=== PATIENT | female | born 1935 | race Caucasian/White ===

== ENCOUNTER → 2016-11-05 | Outpatient (CLI) | payer MEDICARE, OTHER | END | disposition home or self-care (01) | LOC: GMAL 10:44 | PROVIDERS: ATTEND Family Medicine | DX: E53.8 Deficiency of other specified B group vitamins (principal); E03.9 Hypothyroidism, unspecified ==

== ENCOUNTER → 2016-11-27 | Outpatient (CLI) | payer MEDICARE | END | disposition home or self-care (01) | LOC: GMAL 10:41 | PROVIDERS: ATTEND Family Medicine | DX: R06.02 Shortness of breath (principal) ==

== ENCOUNTER → 2016-12-11 | Outpatient (CLI) | payer MEDICARE | LOC: SL 21:30 | PROVIDERS: ATTEND Family Medicine | DX: G47.33 Obstructive sleep apnea (adult) (pediatric) (principal) ==

== ENCOUNTER → 2016-12-30 | Outpatient (CLI) | payer MEDICARE | LOC: BFHH 13:17 | PROVIDERS: ATTEND Family Medicine | DX: N39.0 Urinary tract infection, site not specified (principal); R73.9 Hyperglycemia, unspecified; R11.12 Projectile vomiting ==

== ENCOUNTER → 2017-03-03 | Outpatient (CLI) | payer MEDICARE | END | disposition home or self-care (01) | LOC: BFHH 12:03 | PROVIDERS: ATTEND Family Medicine | DX: I13.0 Hypertensive heart and chronic kidney disease with heart failure and stage 1 through stage 4 chronic kidney disease, or unspecified chronic kidney disease (principal); I50.9 Heart failure, unspecified; N18.2 Chronic kidney disease, stage 2 (mild); E11.42 Type 2 diabetes mellitus with diabetic polyneuropathy; J44.9 Chronic obstructive pulmonary disease, unspecified ==

== ENCOUNTER → 2017-03-13 | Outpatient (CLI) | payer MEDICARE | LOC: RESP 11:18 | PROVIDERS: ATTEND Family Medicine | DX: J44.9 Chronic obstructive pulmonary disease, unspecified (principal) ==

== ENCOUNTER → 2017-06-09 | Outpatient (CLI) | payer MEDICARE ==
--- NOTE | 2017-06-09 12:57 | RAD ---
4V right shoulder. Indication: RIGHT PAIN Comparison: February 16, 2014. Impression: A.C. and glenohumeral joint alignment normal without acute fracture or dislocation. Mild AC joint osteoarthritis. Mild glenohumeral joint osteoarthritis. Mild lateral downsloping acromion. Osteopenia. If this is a new finding, DEXA scan recommended as well as evaluation for possible osteoporosis treatment. Electronically signed by: Feroz Pedersen MD 06/09/2017 12:56 PM [facility]
== END | disposition home or self-care (01) ==
LOC: RAD 09:18
PROVIDERS: ATTEND Orthopaedic Surgery
DX: M25.511 Pain in right shoulder (principal)

== ENCOUNTER → 2017-06-24 | Outpatient (CLI) | payer MEDICARE | LOC: GMAL 10:47 | PROVIDERS: ATTEND Family Medicine | DX: D53.9 Nutritional anemia, unspecified (principal) ==

== ENCOUNTER 2017-11-11 18:46 | Observation (INO) | payer MEDICARE ==
[2017-11-11] MEDS ORDERED: SODIUM CHLORIDE 0.9% (FLUSH) 10 ML SYG IV PRN (18:51)
[2017-11-11] MEDS ORDERED: ASPIRIN (CHEWABLE) 81 MG TAB PO ONE (19:11)
--- NOTE | 2017-11-11 19:24 | RAD ---
EXAM DESCRIPTION: Chest,1 View CLINICAL HISTORY: CHEST PAIN COMPARISON: 04/11/2015 FINDINGS: Cardiac silhouette is within normal limits. There is no focal parenchymal or pleural disease. Visualized osseous structures are within normal limits. IMPRESSION: No evidence of acute cardiopulmonary disease. Electronically signed by: Angel Mcfarland 11/11/2017 7:23 PM CDT
--- NOTE | 2017-11-11 22:59 | ED.PDOC ---
History of Present Illness - General Chief Complaint: Chest Pain/GA Stated Complaint: chest pain, substernal Time Seen by Provider: 11/11/17 18:49 Source: patient Exam Limitations: no limitations - History of Present Illness Timing/Duration: gone now Severity/Quality: moderate, aching, pressure Location: substernal Chest Pain Radiation: no radiation Activities at Onset: none Improving Factors: nothing Worsening Factors: nothing Nitro Today/Relief: no nitro taken today Associated Symptoms: denies symptoms Allergies/Adverse Reactions: Allergies Hydrocodone [From Vicodin] Allergy (Severe, Verified 11/11/17 19:52) swelled up everywhere, "couldn't breathe" Home Medications: Ambulatory Orders Acetaminophen W/ Codeine [Tylenol W/ CODEINE #3] 1 ea PO Q6H PRN 04/09/15 Alendronate Sodium [Fosamax] 70 mg PO WKLY 04/09/15 Ascorbic Acid [Vitamin C] 500 mg PO DAILY 04/09/15 Budesonide-Formoterol Fumarate [Symbicort 160-4.5 Mcg/Act] 1 aer IN BID PRN Calcium 1,200 mg PO ACBK 04/09/15 Carbidopa/Levodopa 25/100 [Sinemet 25/100] 1 ea PO BEDTIME 04/09/15 Cyanocobalamin [Vitamin B-12] 1,000 mcg SL DAILY 04/09/15 Glucosamine Hydrochloride [Glucosamine] 1,000 mg PO DAILY 04/09/15 Levalbuterol Nebs [Xopenex NEBS] 3 ml INH PRN PRN 04/09/15 Levothyroxine Sodium [Synthroid] 88 mcg PO DAILY 04/09/15 Multiple Vitamin [Multivitamins] 1 cap PO DAILY 04/09/15 Multiple Vitamins W/ Minerals [Vitamin D3 Complete] 1 tab PO DAILY 04/09/15 Naproxen Sodium [Aleve] 440 mg PO BID 04/09/15 Oxybutynin Chloride [Ditropan] 5 mg PO BID 04/09/15 Pravastatin Sodium [Pravachol] 40 mg PO BID 04/09/15 Ranitidine HCl [Acid Flight/Transport Nurse] 75 mg PO DAILY 04/09/15 Spironolactone & Hydrochloroth [Spironolactone/Hydrochlor 25-25 mg] 1 tab PO DAILY 11/22/15 Terbinafine HCl [Lamisil] 250 mg PO DAILY 04/09/15 Vitamin E 1,000 unit PO DAILY 04/09/15 Cefdinir 300 mg PO BID #20 cap 04/11/15 Metoprolol Tartrate [Lopressor] 100 mg PO BIDFD #0 tab 04/11/15 Prednisone 10 mg PO . DIRECTED #30 se 04/11/15 Review of Systems - Review of Systems Constitutional: States: no symptoms reported EENTM: States: no symptoms reported Respiratory: States: no symptoms reported Cardiology: States: chest pain, edema. Denies: palpitations, syncope Gastrointestinal/Abdominal: States: no symptoms reported Genitourinary: States: no symptoms reported Musculoskeletal: States: no symptoms reported Skin: States: no symptoms reported Neurological: States: no symptoms reported Endocrine: States: no symptoms reported Hematologic/Lymphatic: States: no symptoms reported All other Systems: Reviewed and Negative Past Medical History (General) - Patient Medical History Hx Seizures: No Hx Stroke: Yes - 2008 Hx Dementia: No Hx Asthma: No Hx of COPD: Yes Hx Cardiac Disorders: No Hx Congestive Heart Failure: No Hx Pacemaker: No Hx Hypertension: Yes Hx Thyroid Disease: Yes Hx Diabetes: Yes Hx Gastroesophageal Reflux: Yes Hx Renal Disease: No Hx Cancer: No Hx of HIV: No Hx MRSA: No Surgical History: appendectomy, tonsillectomy, other - Vaccination History Hx Tetanus, Diphtheria Vaccination: No Hx Influenza Vaccination: Yes Hx Pneumococcal Vaccination: Yes - Social History Hx Tobacco Use: No Hx Alcohol Use: No Hx Depression: No Family Medical History - Family History Mother Family History: No Known Living Status: Hx Family Stroke: Yes Father Hx Cardiac Disease: Yes Physical Exam - Physical Exam General Appearance: Alert, Well Developed Eyes, Ears, Nose, Throat Exam: PERRL/EOMI, normal ENT inspection Neck: non-tender, full range of motion, supple, normal inspection Respiratory: chest non-tender, lungs clear, normal breath sounds, no respiratory distress Cardiovascular/Chest: normal peripheral pulses, regular rate, rhythm Peripheral Pulses: radial,right: 2+, radial,left: 2+ Gastrointestinal/Abdominal: non tender, soft Extremity: normal range of motion, normal inspection Neurologic: no motor/sensory deficits, alert Skin Exam: normal color, warm/dry Lymphatic: no adenopathy Progress - Progress Progress: 11/11/17 23:00 CHEST PAIN X 6H CLINIC OFFICE ASSISTANT. CARDIAC ENZ NEG X 2 HOWEVER NEW ONSET CP, THUS NEED TO ADMIT FOR SERIAL ENZYMES AND CP R/O. W/U NEG IN ER: COAGS, CMP, CBC, CXR, EKG, BNP UNREMARKABLE. I SPOKE WITH DIMAS FLETCHER, HOSPITALIST RESIDENTIAL ENERGY AUDITOR, WHO IS ADMITTING FOR CP R/O. THANK YOU , DIMAS AND [facility], FOR ACCEPTING FURTHER CARE. Departure - Departure Clinical Impression: Chest pain, Bilateral lower extremity edema Disposition: Admit Patient Condition: Good Diet: resume usual diet Home Medications: Ambulatory Orders Acetaminophen W/ Codeine [Tylenol W/ CODEINE #3] 1 ea PO Q6H PRN 04/09/15 Alendronate Sodium [Fosamax] 70 mg PO WKLY 04/09/15 Ascorbic Acid [Vitamin C] 500 mg PO DAILY 04/09/15 Budesonide-Formoterol Fumarate [Symbicort 160-4.5 Mcg/Act] 1 aer IN BID PRN Calcium 1,200 mg PO ACBK 04/09/15 Carbidopa/Levodopa 25/100 [Sinemet 25/100] 1 ea PO BEDTIME 04/09/15 Cyanocobalamin [Vitamin B-12] 1,000 mcg SL DAILY 04/09/15 Glucosamine Hydrochloride [Glucosamine] 1,000 mg PO DAILY 04/09/15 Levalbuterol Nebs [Xopenex NEBS] 3 ml INH PRN PRN 04/09/15 Levothyroxine Sodium [Synthroid] 88 mcg PO DAILY 04/09/15 Multiple Vitamin [Multivitamins] 1 cap PO DAILY 04/09/15 Multiple Vitamins W/ Minerals [Vitamin D3 Complete] 1 tab PO DAILY 04/09/15 Naproxen Sodium [Aleve] 440 mg PO BID 04/09/15 Oxybutynin Chloride [Ditropan] 5 mg PO BID 04/09/15 Pravastatin Sodium [Pravachol] 40 mg PO BID 04/09/15 Ranitidine HCl [Acid Flight/Transport Nurse] 75 mg PO DAILY 04/09/15 Spironolactone & Hydrochloroth [Spironolactone/Hydrochlor 25-25 mg] 1 tab PO DAILY 04/09/15 Terbinafine HCl [Lamisil] 250 mg PO DAILY 04/09/15 Vitamin E 1,000 unit PO DAILY 04/09/15 Cefdinir 300 mg PO BID #20 cap 04/11/15 Metoprolol Tartrate [Lopressor] 100 mg PO BIDFD #0 tab 04/11/15 Prednisone 10 mg PO . DIRECTED #30 se 04/11/15 Decision To Admit - Decistion To Admit Decision to Admit Reason: Admit from ER Decision to Admit Date: 11/11/17 Decision to Admit Time: 23:00
[2017-11-12] MEDS ORDERED: SODIUM CHLORIDE 0.9% (FLUSH) 10 ML SYG IV PRN (00:03)
[2017-11-12] MEDS ORDERED: MORPHINE SULFATE INJ 10 MG/ML VIAL IV PRN (00:03)
[2017-11-12] MEDS ORDERED: NITROGLYCERIN 0.4 MG 25 EA TAB SL PRN (00:03)
[2017-11-12] MEDS ORDERED: ACETAMINOPHEN 325 MG TAB PO PRN (00:03)
[2017-11-12] MEDS ORDERED: ACETAMINOPHEN W/COD #3 TAB 1 EA TAB PO PRN (00:09)
[2017-11-12] MEDS ORDERED: LEVALBUTEROL NEBS 1.25 MG/3 ML VIAL NEB PRN (00:12)
[2017-11-12] MEDS ORDERED: IV SET AND CAP CHANGE INJ INJ SCH (00:30)
[2017-11-12] MEDS ORDERED: PANTOPRAZOLE SODIUM TAB 40 MG PO SCH (06:30)
[2017-11-12] MEDS ORDERED: METOPROLOL TARTRATE 25 MG TAB PO SCH (07:30)
[2017-11-12] MEDS ORDERED: PRAVASTATIN SODIUM 20 MG TAB ONE (07:53)
[2017-11-12] MEDS ORDERED: hydroCHLOROthiazide 25 MG TAB ONE (07:53)
[2017-11-12] MEDS ORDERED: SPIRONOLACTONE 25 MG TAB ONE (07:53)
[2017-11-12] MEDS ORDERED: ENOXAPARIN SODIUM 30 MG/0.3 ML SYG SUBCU ONE (07:53)
[2017-11-12] MEDS: LEVALBUTEROL NEBS 1.25 MG/3 ML VIAL NEB SCH ×2 (08:22→13:00)
[2017-11-12] MEDS ORDERED: TERBINAFINE HCL 250 MG TAB PO SCH (09:00)
[2017-11-12] MEDS ORDERED: [UNRECOGNIZED DRUG - OTHER] PO SCH (09:00)
[2017-11-12] MEDS ORDERED: OXYBUTYNIN CL 5 MG TAB PO SCH (09:00)
[2017-11-12] MEDS ORDERED: SODIUM CHLORIDE 0.9% (FLUSH) 10 ML SYG IV SCH (09:00)
[2017-11-12] MEDS ORDERED: SPIRONOLACTONE PO SCH (09:00)
[2017-11-12] MEDS ORDERED: HYDROCHLOROTHIAZIDE PO SCH (09:00)
[2017-11-12] MEDS ORDERED: SPIRONOLACTONE 25 MG TAB PO SCH (09:00)
[2017-11-12] MEDS ORDERED: ENOXAPARIN SODIUM 40 MG/0.4 ML SYG SUBCU SCH (09:00)
[2017-11-12] MEDS ORDERED: hydroCHLOROthiazide 25 MG TAB PO SCH (09:00)
[2017-11-12] MEDS ORDERED: PRAVASTATIN SODIUM 20 MG TAB PO SCH (09:00)
[2017-11-12] MEDS ORDERED: LEVOTHYROXINE SODIUM 0.088 MG TAB PO SCH (09:00)
[2017-11-12 10:16] VITALS: BP 90/65; TEMP 96.3; O2SAT 95
[2017-11-12] MEDS ORDERED: POTASSIUM CHLORIDE 20 MEQ TAB PO ONE (11:32)
--- NOTE | 2017-11-12 13:27 | SSS ---
SUPERVISING PHYSICIAN: Irvin Ang MD DATE OF ADMISSION: 11/11/17 DATE OF DISCHARGE: 11/12/17 DISCHARGE DIAGNOSIS: 1. Chest pain, rule out myocardial infarction. 2. Shortness of breath with a significant history of chronic obstructive pulmonary disease. 3. Chronic obstructive pulmonary disease. 4. Gastroesophageal reflux disease. HISTORY OF PRESENT ILLNESS: This is an 82-year-old female patient who lives at [facility]. About 4:30 yesterday afternoon, she started having some stomach cramps. Shortly thereafter, she had some pain in her left biceps that radiated up to her left neck and jaw area. She was at rest when the pain began. Shortly thereafter, it subsided, but then again about 6 PM she had some pressure in her chest that also went up to the left neck. She also felt like she was short of breath. She does have a significant history of chronic obstructive pulmonary disease. She felt warm. There was no diaphoresis. At that point, she decided to go to the Emergency Room. Her initial lab in the Emergency Room showed a CBC that was basically within normal limits. Her electrolytes were within normal limits as well as her liver function. Slightly elevated BUN of 28. Her initial two sets of cardiac enzymes were negative. She had a slightly elevated BNP of 136. She was given an aspirin in the Emergency Room. An EKG was done. There were no changes on her EKG. Chest x-ray showed no acute cardiopulmonary processes. I was called for admission to the hospital. PAST MEDICAL HISTORY: 1. Hyperlipidemia. 2. Hypertension. 3. Chronic obstructive pulmonary disease. 4. Gastroesophageal reflux disease. 5. Osteoporosis. 6. Osteoarthritis. 7. Diabetes mellitus, type 2. 8. Cerebrovascular accident. 9. Obstructive sleep apnea. 10. Fibromyalgia. 11. Polymyalgia rheumatica. PAST SURGICAL HISTORY: 1. Appendectomy. 2. Left knee arthroscopy. 3. Cataract removal bilaterally. 4. Bilateral knee replacement. 5. Laminectomy of lumbar region. 6. Cervical surgery. 7. Bilateral rotator cuff repair. 8. Back surgery repair. OUTPATIENT MEDICATIONS: 1. Metoprolol. 2. Alendronate. 3. Pravastatin. 4. Sinemet. 5. Levothyroxine. 6. Docusate sodium. 7. Tylenol with codeine. 8. Meloxicam. 9. Magnesium oxide. 10. Oxybutynin. 11. Biotin. 12. Calcium citrate. 13. Glucosamine. 14. Multivitamin. 15. Vitamin B12. ALLERGIES: VICODIN, ELAVIL. FAMILY HISTORY: Positive for cerebrovascular accident, myocardial infarction. SOCIAL HISTORY: She is retired. She is . She has two children. She has a history of smoking for 13 years, but she quit in 1962. She denies any ETOH or illicit drug use. REVIEW OF SYSTEMS: Negative except as per history of present illness. She has had no chest pain since admission to the hospital. PHYSICAL EXAMINATION: VITAL SIGNS: Afebrile. Heart rate 63. Blood pressure has run between 90/64 and 117/69. Respiratory rate 18. O2 saturation 95% on 2 liters nasal cannula. GENERAL: This is an 82-year-old female patient sitting in her hospital bed. She is in no acute distress. HEENT: Normocephalic, atraumatic. Pupils are equal and reactive. Oropharynx is clear. NECK: Supple without mass. No discernible jugular venous distention. RESPIRATORY: Essentially clear to auscultation bilaterally. CHEST: There is equal rise and fall of the chest with inspiration and expiration. CARDIOVASCULAR: Regular rate and rhythm. GASTROINTESTINAL: Abdomen is soft, nondistended, nontender. Bowel sounds are positive. EXTREMITIES: No cyanosis, clubbing or edema. NEUROLOGIC: Awake, alert and oriented times three. Cranial nerves II-XII are grossly intact. LABORATORY: Subsequent lab shows CBC again basically within normal limits. Sodium 141, potassium slightly low at 3.5, chloride 107, carbon dioxide 27, BUN 25, creatinine 0.95, magnesium 2. Liver function tests within normal limits. Her last two sets of cardiac enzymes are within normal limits. All other labs and films have been reviewed via the EMR. DISCHARGE PLAN: The patient was placed in observation overnight. She had no chest pain after admission. She was given oral potassium supplementation this morning for her slightly low potassium. She was also given a proton pump inhibitor for ulcer prophylaxis. Her home medications are to be resumed on discharge. I have also given her an 81 mg enteric coated aspirin. She is to resume her previous diet. She is to followup with Dr. David on 11/20/17 at 2: 15. I am not sure when her most recent cardiac workup was, but if it has not been in the past year or so, she may need an additional cardiac workup. She is to return to the hospital or call Dr. David' office for any further problems or complications. Dr. Ang is the collaborating physician and available for consultation. #[id number] [facility]
[2017-11-12] MEDS ORDERED: CARBIDOPA/LEVODOPA 25/100 1 TAB PO SCH (21:00)
[2017-11-13] MEDS ORDERED: LEVOTHYROXINE SODIUM 0.088 MG TAB PO SCH (06:30)
[2017-11-13] MEDS ORDERED: ASPIRIN TABLET 325 MG TAB PO SCH (09:00)
== END 2017-11-12 12:51 ==
LOC: ER 18:46 → MS 23:15
PROVIDERS: ADMIT Nurse Practitioner Acute Care; ATTEND Nurse Practitioner Acute Care
DX: R07.89 Other chest pain (principal); R06.02 Shortness of breath; J44.9 Chronic obstructive pulmonary disease, unspecified; K21.9 Gastro-esophageal reflux disease without esophagitis; E87.6 Hypokalemia; R60.0 Localized edema; E78.5 Hyperlipidemia, unspecified; I10 Essential (primary) hypertension; E11.9 Type 2 diabetes mellitus without complications; G47.33 Obstructive sleep apnea (adult) (pediatric); M79.7 Fibromyalgia; M35.3 Polymyalgia rheumatica; M81.0 Age-related osteoporosis without current pathological fracture; M19.90 Unspecified osteoarthritis, unspecified site; Z79.1 Long term (current) use of non-steroidal anti-inflammatories (NSAID); Z79.82 Long term (current) use of aspirin; Z79.51 Long term (current) use of inhaled steroids; Z79.899 Other long term (current) drug therapy; Z88.5 Allergy status to narcotic agent; Z88.8 Allergy status to other drugs, medicaments and biological substances; Z86.73 Personal history of transient ischemic attack (TIA), and cerebral infarction without residual deficits; Z87.891 Personal history of nicotine dependence
CPT/HCPCS: J7614; 82553 ×4; 80053; 36415 ×4; 82550 ×4; 80048; 85025 ×2; 85730; 85610; 84484 ×4; 80076; 83880; 71045; 94640; 94762; 93005 ×3; G0378

== ENCOUNTER 2017-11-20 09:22 | Emergency (ER) | payer MEDICARE ==
[2017-11-20 09:39] VITALS: TEMP 98.5
[2017-11-20] MEDS ORDERED: DIPHENOXYLATE HCL/ATROPINE 2.5 MG TAB PO ONE (09:47)
[2017-11-20] MEDS ORDERED: SODIUM CHLORIDE 0.9% 1000ML 1,000 ML IVS ONE (09:47)
--- NOTE | 2017-11-20 09:59 | ED.PDOC ---
History of Present Illness - General Chief Complaint: GI Problem Time Seen by Provider: 11/20/17 09:47 Information Source: patient Exam Limitations: no limitations - History of Present Illness Initial Comments: patient comes in today with 2 day history of diarrhea. Patient states she's had more than 5 episodes of loose stools this morning and more than she can count the last couple of days. Patient did have a cleaning lady that had a similar illness about a week ago but no other sick contacts. Patient states she does feel weak and a little bit of nausea but no emesis. She's had no blood in her stools and no black or tarry stools. She denies any fever or chills. She's had no cough or cold symptoms. She denies chest pain or shortness of breath. Abdominal Pain Onset Location: generalized abdomen Pain Radiation: no radiation Quality: moderate Timing/Duration: other Improving Factors: nothing Worsening Factors: nothing Associated Symptoms: nausea/vomiting Review of Systems - Review of Systems Constitutional: States: no symptoms reported. Denies: chills, fever EENTM: States: no symptoms reported. Denies: eye pain, ear pain, nose congestion, throat pain Respiratory: States: no symptoms reported. Denies: cough, orthopnea, short of breath, wheezing Cardiology: States: no symptoms reported. Denies: chest pain, edema, palpitations Gastrointestinal/Abdominal: States: diarrhea, nausea. Denies: abdominal pain, vomiting Genitourinary: States: no symptoms reported. Denies: dysuria, frequency Musculoskeletal: States: no symptoms reported Skin: States: no symptoms reported Past Medical History (General) - Patient Medical History Hx Seizures: No Hx Stroke: No Hx Dementia: No Hx Asthma: No Hx of COPD: Yes Hx Cardiac Disorders: No Hx Congestive Heart Failure: No Hx Pacemaker: No Hx Hypertension: Yes Hx Thyroid Disease: Yes Hx Diabetes: Yes Hx Gastroesophageal Reflux: No Hx Renal Disease: No Hx Cancer: No Hx of HIV: No Hx Hepatitis C: No Hx MRSA: No - Vaccination History Hx Tetanus, Diphtheria Vaccination: No Hx Influenza Vaccination: Yes Hx Pneumococcal Vaccination: No Immunizations Up to Date: Yes - Social History Hx Tobacco Use: No Hx Chewing Tobacco Use: No Hx Alcohol Use: No Hx Substance Use: No Hx Substance Use Treatment: No Hx Depression: No Feels Threatened In Home Enviroment: No Feels Threatened In a Relationship: No Hx Physical Abuse: No Hx Emotional Abuse: No Hx Suspected Abuse: No - Activities of Daily Living Alf/Assisted Living (if applicable):: [place] - Female History Patient is a Female of Child Bearing Age (10 -59 yrs old): No Patient : No Family Medical History - Family History Mother Family History: No Known Living Status: Age at (years of age): 73 Hx Family Stroke: Yes Father Family History: Unknown Living Status: Age at (years of age): 89 Hx Cardiac Disease: Yes Physical Exam - Physical Exam General Appearance: Alert, Comfortable, No apparent distress Eyes, Ears, Nose, Throat Exam: PERRL/EOMI, normal ENT inspection, TMs normal, pharynx normal Neck: non-tender, full range of motion, supple, normal inspection Respiratory: chest non-tender, lungs clear, normal breath sounds, no respiratory distress Cardiovascular/Chest: normal peripheral pulses, regular rate, rhythm, no edema, no gallop, no JVD, no murmur Peripheral Pulses: No deficit Gastrointestinal/Abdominal: normal bowel sounds, non tender, soft, no organomegaly, no pulsatile mass Progress - Progress Progress: 11/20/17 10:55 11/20/17 10:32 BMP [BASIC METABOLIC PANEL] Stat Laboratory Results WBC 8.8 K/mm3 (4.8-10.8) 11/20/17 10:00 RBC 4.24 M/mm3 (4.20-5.40) 11/20/17 10:00 Hgb 13.6 gm/dL (12.0-16.0) 11/20/17 10:00 Hct 40.3 % (36.0-47.0) 11/20/17 10:00 MCV 95.0 fl (81.0-99.0) 11/20/17 10:00 MCH 32.2 pg (27.0-31.0) H 11/20/17 10:00 MCHC 33.9 g/dL (33.0-37.0) 11/20/17 10:00 RDW 13.7 % (11.5-14.5) 11/20/17 10:00 Plt Count 202 K/mm3 (130-400) 11/20/17 10:00 MPV 9.2 fl (7.40-10.4) 11/20/17 10:00 Absolute Neuts (auto) 6.50 K/uL (1.8-6.8) 11/20/17 10:00 Absolute Lymphs (auto) 1.40 K/uL (1.0-3.4) 11/20/17 10:00 Absolute Monos (auto) 0.80 K/uL (0.2-0.8) 11/20/17 10:00 Absolute Eos (auto) 0.10 K/uL (0.0-0.4) 11/20/17 10:00 Absolute Basos (auto) 0.00 K/uL (0.0-0.1) 11/20/17 10:00 Neutrophils % 73.2 % (42.0-78.0) 11/20/17 10:00 Lymphocytes % 16.4 % (20.0-50.0) L 11/20/17 10:00 Monocytes % 8.8 % (2.0-9.0) 11/20/17 10:00 Eosinophils % 1.1 % (1.0-5.0) 11/20/17 10:00 Basophils % 0.5 % (0.0-2.0) 11/20/17 10:00 Sodium 137 mmol/L (135-145) 11/20/17 10:00 Potassium 3.3 mmol/L (3.6-5.0) L 11/20/17 10:00 Chloride 102 mmol/L (101-111) 11/20/17 10:00 Carbon Dioxide 26 mmol/L (21-31) 11/20/17 10:00 Anion Gap 12.3 (12-18) 11/20/17 10:00 BUN 25 mg/dL (7-18) H 11/20/17 10:00 Creatinine 1.18 mg/dL (0.6-1.3) 11/20/17 10:00 BUN/Creatinine Ratio 21.2 (10-20) H 11/20/17 10:00 Random Glucose 85 mg/dL (70-105) 11/20/17 10:00 Serum Osmolality 277.5 mOsm/L (275-295) 11/20/17 10:00 Calcium 9.2 mg/dL (8.4-10.2) 11/20/17 10:00 Total Bilirubin 0.7 mg/dL (0.2-1.0) 11/20/17 10:00 AST 26 IU/L (10-42) 11/20/17 10:00 ALT 20 IU/L (10-60) 11/20/17 10:00 Alkaline Phosphatase 83 IU/L (42-121) 11/20/17 10:00 Serum Total Protein 7.3 gm/dL (6.4-8.2) 11/20/17 10:00 Albumin 3.9 g/dl (3.2-5.5) 11/20/17 10:00 Globulin 3.4 gm/dL (2.3-3.5) 11/20/17 10:00 Albumin/Globulin Ratio 1.1 (1.1-1.9) 11/20/17 10:00 discussed with patient most likely of viral gastroenteritis. Since arrival she has not had to have a bowel movement but she understands this may persist for another couple of days. Discussed slow return to normal diet, holding of any dairy or spicy foods, and dehydration precautions. Follow up with her PCP in 2- 3 days if no improvement to discuss if further treatment is necessary. Return to ER for severe worsening, weakness, intractable emesis. - EKG/XRAY/CT CT Ordered: No CT Interpretation Call Back: No Departure - Departure Clinical Impression: Diarrhea Qualifiers: Diarrhea type: infectious Qualified Code(s): A09 - Infectious gastroenteritis and colitis, unspecified Disposition: Discharge to Home or Self Care Condition: Good Departure Forms: ED Discharge - Pt. Copy, Patient Portal Self Enrollment Diet: bland diet Referrals: Johan David III, MD [Primary Care Provider] - 1-2 Weeks Home Medications: Ambulatory Orders Acetaminophen W/ Codeine [Tylenol W/ CODEINE #3] 1 ea PO Q6H PRN 04/09/15 Alendronate Sodium [Fosamax] 70 mg PO WKLY 04/09/15 Ascorbic Acid [Vitamin C] 500 mg PO DAILY 04/09/15 Calcium 1,200 mg PO ACBK 04/09/15 Carbidopa/Levodopa 25/100 [Sinemet 25/100] 1 ea PO BEDTIME 04/09/15 Levalbuterol Nebs [Xopenex NEBS] 3 ml INH PRN PRN 04/09/15 Levothyroxine Sodium [Synthroid] 88 mcg PO DAILY 04/09/15 Multiple Vitamins W/ Minerals [Vitamin D3 Complete] 1 tab PO DAILY 04/09/15 Oxybutynin Chloride [Ditropan] 5 mg PO BID 04/09/15 Pravastatin Sodium [Pravachol] 40 mg PO BID 04/09/15 Spironolactone & Hydrochloroth [Spironolactone/Hydrochlor 25-25 mg] 25 tab PO DAILY 04/09/15 Metoprolol Tartrate [Lopressor] 100 mg PO BIDFD #0 tab 04/11/15 Cimetidine 200 mg PO DAILY 11/20/17 Docusate Sodium 100 mg PO 11/20/17 Esomeprazole Magnesium [Nexium] 40 mg PO 11/20/17 Meloxicam 15 mg PO 11/20/17 Potassium Chloride [K-Tab] 20 meq PO 11/20/17 Additional Instructions: Discussed slow return to normal diet, holding of any dairy or spicy foods, and dehydration precautions. Follow up with her PCP in 2-3 days if no improvement to discuss if further treatment is necessary. Return to ER for severe worsening , weakness, intractable emesis.
[2017-11-20 11:05] VITALS: O2SAT 100
[2017-11-20 11:54] VITALS: BP 130/74
== END 2017-11-20 11:49 | disposition home or self-care (01) ==
LOC: ER 09:22
DX: A09 Infectious gastroenteritis and colitis, unspecified (principal); J44.9 Chronic obstructive pulmonary disease, unspecified; I10 Essential (primary) hypertension; E07.9 Disorder of thyroid, unspecified; E11.9 Type 2 diabetes mellitus without complications
CPT/HCPCS: 36415; 80053; 85025; J7030

== ENCOUNTER 2017-11-22 07:55 | Emergency (ER) | payer MEDICARE ==
[2017-11-22 08:23] VITALS: TEMP 98.3; O2SAT 100
[2017-11-22] MEDS ORDERED: SODIUM CHLORIDE 0.9% 1000ML 500 ML IVS ONE (08:46)
[2017-11-22] MEDS ORDERED: DIPHENOXYLATE HCL/ATROPINE 2.5 MG TAB PO ONE (09:45)
[2017-11-22] MEDS ORDERED: POTASSIUM CHLORIDE 20 MEQ TAB PO ONE (09:46)
--- NOTE | 2017-11-22 09:50 | ED.PDOC ---
History of Present Illness - General Chief Complaint: GI Problem Stated Complaint: diarrhea Time Seen by Provider: 11/22/17 08:22 Information Source: patient, RN notes reviewed, Vital Signs reviewed, old records Exam Limitations: other - confusion - History of Present Illness Initial Comments: She reports episodic diarrhea x 5 days. Seen here 2 days ago for same. Took some Imodium earlier today otherwise no new meds. No recent antibiotics. Abdominal Pain Onset Location: other - denies any abdominal pain Timing/Duration: intermittent, other - 5 days Improving Factors: nothing Worsening Factors: nothing Associated Symptoms: fatigue, weakness Review of Systems - Review of Systems Constitutional: States: see HPI, weakness. Denies: fever EENTM: States: no symptoms reported Respiratory: States: no symptoms reported Gastrointestinal/Abdominal: States: see HPI Musculoskeletal: States: no symptoms reported Neurological: States: no symptoms reported Endocrine: States: no symptoms reported Past Medical History (General) - Patient Medical History Hx Seizures: No Hx Stroke: No Hx Dementia: No Hx Asthma: No Hx of COPD: Yes Hx Cardiac Disorders: No Hx Congestive Heart Failure: No Hx Pacemaker: No Hx Hypertension: Yes Hx Thyroid Disease: Yes Hx Diabetes: Yes Hx Gastroesophageal Reflux: No Hx Renal Disease: No Hx Cancer: No Hx of HIV: No Hx Hepatitis C: No Hx MRSA: No Surgical History: other - Vaccination History Hx Tetanus, Diphtheria Vaccination: No Hx Influenza Vaccination: Yes Hx Pneumococcal Vaccination: No - Social History Hx Tobacco Use: No Hx Chewing Tobacco Use: No Hx Alcohol Use: No Hx Substance Use: No Hx Substance Use Treatment: No Hx Depression: No Hx Physical Abuse: No Hx Emotional Abuse: No Hx Suspected Abuse: No - Activities of Daily Living Correction/Assisted Living (if applicable):: [place] - Female History Patient : No Family Medical History - Family History Mother Family History: No Known Living Status: Age at (years of age): 73 Hx Family Stroke: Yes Father Family History: Unknown Living Status: Age at (years of age): 89 Hx Cardiac Disease: Yes Physical Exam - Physical Exam General Appearance: Alert, Comfortable, No apparent distress Eyes, Ears, Nose, Throat Exam: normal ENT inspection Neck: supple, normal inspection Respiratory: no respiratory distress, no accessory muscle use Gastrointestinal/Abdominal: normal bowel sounds, non tender, soft, no organomegaly, no pulsatile mass Extremity: other - poor skin turgor Neurologic: no motor/sensory deficits, alert, normal mood/affect Skin Exam: normal color, warm/dry Progress - Progress Progress: 11/22/17 09:48 No diarrhea here. No pain. Nurse noted that her urine was cloudy so a specimen was sent. She denies dysuria but does claim to have hesitancy & urgency. Is taking a diuretic. Urine culture sent, empiric Tx with MacroBid. Departure - Departure Clinical Impression: Acute diarrhea, UTI (urinary tract infection) with pyuria Time of Disposition: 09:50 Disposition: Discharge to Asst Living Condition: Good Departure Forms: ED Discharge - Pt. Copy, Patient Portal Self Enrollment Instructions: DI for Diarrhea and Traveler's Diarrhea -- Adult, Urinary Tract Infection, Adult (DC) Referrals: Johan David III, MD [Primary Care Provider] - 11/25/17 Prescriptions: Diphenoxylate/Atropine [Lomotil Tab] 1 tab PO BID PRN 2 Days #3 tab PRN Reason: Diarrhea Nitrofurantoin Monohydrate Mac [Macrobid] 100 mg PO BID 7 Days #14 capsule Home Medications: Ambulatory Orders Acetaminophen W/ Codeine [Tylenol W/ CODEINE #3] 1 ea PO Q6H PRN 04/09/15 Alendronate Sodium [Fosamax] 70 mg PO WKLY 04/09/15 Ascorbic Acid [Vitamin C] 500 mg PO DAILY 04/09/15 Calcium 1,200 mg PO ACBK 04/09/15 Carbidopa/Levodopa 25/100 [Sinemet 25/100] 1 ea PO BEDTIME 04/09/15 Levalbuterol Nebs [Xopenex NEBS] 3 ml INH PRN PRN 04/09/15 Levothyroxine Sodium [Synthroid] 88 mcg PO DAILY 04/09/15 Multiple Vitamins W/ Minerals [Vitamin D3 Complete] 1 tab PO DAILY 04/09/15 Oxybutynin Chloride [Ditropan] 5 mg PO BID 04/09/15 Pravastatin Sodium [Pravachol] 40 mg PO BID 04/09/15 Spironolactone & Hydrochloroth [Spironolactone/Hydrochlor 25-25 mg] 25 tab PO DAILY 04/09/15 Metoprolol Tartrate [Lopressor] 100 mg PO BIDFD #0 tab 04/11/15 Cimetidine 200 mg PO DAILY 11/20/17 Docusate Sodium 100 mg PO 11/20/17 Esomeprazole Magnesium [Nexium] 40 mg PO 11/20/17 Meloxicam 15 mg PO 11/20/17 Potassium Chloride [K-Tab] 20 meq PO 11/20/17 Diphenoxylate/Atropine [Lomotil Tab] 1 tab PO BID PRN 2 Days #3 tab 11/22/17 Nitrofurantoin Monohydrate Mac [Macrobid] 100 mg PO BID 7 Days #14 capsule 11/22
[2017-11-22 10:02] VITALS: BP 137/75
== END 2017-11-22 10:26 ==
LOC: ER 07:55
DX: R19.7 Diarrhea, unspecified (principal); N39.0 Urinary tract infection, site not specified; I10 Essential (primary) hypertension; E07.9 Disorder of thyroid, unspecified; J44.9 Chronic obstructive pulmonary disease, unspecified; Z79.899 Other long term (current) drug therapy
CPT/HCPCS: 36415; 80048; 81001; 85025; 87086; 87088; 87186; J7030

== ENCOUNTER → 2018-01-20 | Outpatient (CLI) | payer MEDICARE | LOC: GMAL 14:37 | PROVIDERS: ATTEND Family Medicine | DX: I13.0 Hypertensive heart and chronic kidney disease with heart failure and stage 1 through stage 4 chronic kidney disease, or unspecified chronic kidney disease (principal); N18.9 Chronic kidney disease, unspecified; I50.89 Other heart failure ==

== ENCOUNTER → 2018-01-22 | Outpatient (CLI) | payer MEDICARE ==
--- NOTE | 2018-01-22 18:24 | US ---
EXAM DESCRIPTION: Gall Bladder CLINICAL HISTORY: RUQ PAIN COMPARISON: None Available. TECHNIQUE: Right upper quadrant ultrasound FINDINGS: Pancreas: Visualized portions of the pancreas are unremarkable. Bowel gas obscures some areas. Aorta/inferior vena cava: No aortic aneurysm. Normal inferior vena cava. Liver: The liver is homogeneous in texture with normal echogenicity of the hepatic parenchyma. No focal liver lesion or intrahepatic bile duct dilatation. No liver surface irregularity. Normal appearance of the portal vein and hepatic veins. Gallbladder: Gallbladder appears abnormal with multiple intraluminal shadowing stones. Sonographic Edmonds's sign was reported as negative. No gallbladder wall thickening or gallbladder distention to suggest acute cholecystitis. Common bile duct: Normal caliber measuring 5.7 mm. Right kidney: Renal length is 7.8 cm. This is small suggesting chronic scarring or atrophy. Lucent hilum is seen but no distention of the pelvis on the axial images. Normal cortical echogenicity. There is diffuse cortical thinning. No definite hydronephrosis is seen. No renal mass or shadowing calculus. IMPRESSION: Gallstones without other changes to suggest acute cholecystitis. Atrophic right kidney measuring 7.8 cm in length. Electronically signed by: Alexandru Mcclain MD 01/22/2018 6:23 PM CDT
== END ==
LOC: US 14:31
PROVIDERS: ATTEND Family Medicine
DX: K80.20 Calculus of gallbladder without cholecystitis without obstruction (principal); N26.1 Atrophy of kidney (terminal); R10.11 Right upper quadrant pain

== ENCOUNTER → 2018-02-04 | Outpatient (CLI) | payer MEDICARE | LOC: BFHH 17:57 | PROVIDERS: ATTEND Family Medicine | DX: I23.0 Hemopericardium as current complication following acute myocardial infarction (principal); N17.9 Acute kidney failure, unspecified ==

== ENCOUNTER → 2018-03-03 | Outpatient (CLI) | payer MEDICARE | LOC: GMAHI 16:45 | PROVIDERS: ATTEND Nurse Practitioner Family | DX: R60.0 Localized edema (principal) ==

== ENCOUNTER → 2018-05-01 | Outpatient (CLI) | payer MEDICARE | LOC: BFHH 08:24 | PROVIDERS: ATTEND Family Medicine | DX: I50.9 Heart failure, unspecified (principal); E11.22 Type 2 diabetes mellitus with diabetic chronic kidney disease; N18.9 Chronic kidney disease, unspecified; J44.9 Chronic obstructive pulmonary disease, unspecified; M81.0 Age-related osteoporosis without current pathological fracture; M79.7 Fibromyalgia; G47.33 Obstructive sleep apnea (adult) (pediatric); E03.9 Hypothyroidism, unspecified; D51.3 Other dietary vitamin B12 deficiency anemia; Z79.82 Long term (current) use of aspirin ==

== ENCOUNTER 2019-02-07 17:52 | Emergency (ER) | payer MEDICARE ==
--- NOTE | 2019-02-07 18:08 | ED.PDOC ---
History of Present Illness - General Chief Complaint: General Stated Complaint: weakness Time Seen by Provider: 02/07/19 17:56 Source: patient, Vital Signs reviewed, EMS notes reviewed, EMS - History of Present Illness Initial Comments: Pt is an 83 yo female with PMH of COPD, on continuous home oxygen, who presents to ED via EMS for generalized weakness. States at 0930 this morning when she arrived to [facility] she felt generalized weakness and fatigue and used her walker to get into [facility] and sat down. She has continued to feel generalized weakness and diffuse body aches throughout the day. Denies fever, chills, NVD, CP, abdominal pain or slurred speech. Denies any recent sick contacts, dysuria or frequency. Allergies/Adverse Reactions: Allergies Hydrocodone [From Vicodin] Allergy (Severe, Verified 11/22/17 08:22) swelled up everywhere, "couldn't breathe" Home Medications: Ambulatory Orders RX: Acetaminophen W/ Codeine [Tylenol W/ CODEINE #3] 1 ea PO Q6H PRN 04/09/15 RX: Ascorbic Acid [Vitamin C] 1,000 mg PO DAILY 04/09/15 RX: Calcium 1,200 mg PO ACBK 04/09/15 RX: Levothyroxine Sodium [Synthroid] 88 mcg PO DAILY 04/09/15 RX: Multiple Vitamins W/ Minerals [Vitamin D3 Complete] 1 tab PO DAILY 04/09/15 RX: Oxybutynin Chloride [Ditropan] 5 mg PO BID 04/09/15 RX: Pravastatin Sodium [Pravachol] 40 mg PO BID 04/09/15 RX: Spironolactone & Hydrochloroth [Spironolactone/Hydrochlor 25-25 mg] 2 tab PO DAILY 04/09/15 Potassium Chloride [K-Tab] 10 meq PO DAILY 11/20/17 RX: Docusate Sodium 200 mg PO BEDTIME 11/20/17 Diphenoxylate/Atropine [Lomotil Tab] 1 tab PO BID PRN 2 Days #3 tab 11/22/17 Acetaminophen W/ Codeine [Tylenol W/ CODEINE #3] 1 ea PO BEDTIME 02/07/19 Cholecalciferol [Vitamin D3] 2,000 unit PO DAILY 02/07/19 Glucosamine Sulfate [Glucosamine] 2,000 mg PO BID 02/07/19 Magnesium [Chelated Magnesium] 100 mg PO DAILY 02/07/19 Multiple Vitamins W/ Minerals [Macular Health Formula] 2 cap PO DAILY 02/07/19 Nitrofurantoin Monohydrate Mac [Macrobid] 100 mg PO BID 10 Days #20 capsule 02/07/19 RX: Biotin 1,000 mcg PO DAILY 02/07/19 RX: Furosemide 20 mg PO MOWEFR 02/07/19 RX: Lisinopril 5 mg PO DAILY 02/07/19 RX: Metoprolol Tartrate [Lopressor] 100 mg PO DAILY 02/07/19 RX: Omeprazole 20 mg PO DAILY 02/07/19 Review of Systems - Review of Systems Constitutional: States: malaise, weakness - generalized. Denies: chills, fever EENTM: Denies: blurred vision, double vision, ear pain, nose congestion, throat pain, throat swelling Respiratory: States: short of breath. Denies: cough, wheezing Cardiology: Denies: chest pain, edema, palpitations, syncope Gastrointestinal/Abdominal: Denies: abdominal pain, diarrhea, nausea, vomiting Genitourinary: Denies: dysuria, frequency, hematuria Musculoskeletal: States: muscle pain - diffuse Skin: Denies: rash Neurological: Denies: headache, paresthesia, tremors All other Systems: Reviewed and Negative Past Medical History (General) - Patient Medical History Hx Seizures: No Hx Stroke: No Hx Dementia: No Hx Asthma: No Hx of COPD: Yes Hx Cardiac Disorders: No Hx Congestive Heart Failure: No Hx Pacemaker: No Hx Hypertension: Yes Hx Thyroid Disease: Yes Hx Diabetes: Yes Hx Gastroesophageal Reflux: No Hx Renal Disease: No Hx Cancer: No Hx of HIV: No Hx Hepatitis C: No Hx MRSA: No - Vaccination History Hx Tetanus, Diphtheria Vaccination: No Hx Influenza Vaccination: Yes Hx Pneumococcal Vaccination: No - Social History Hx Tobacco Use: No Hx Chewing Tobacco Use: No Hx Alcohol Use: No Hx Substance Use: No Hx Substance Use Treatment: No Hx Depression: No Hx Physical Abuse: No Hx Emotional Abuse: No Hx Suspected Abuse: No - Female History Patient : No Family Medical History - Family History Father Family History: Unknown Living Status: Age at (years of age): 95 Hx Cardiac Disease: Yes Mother Family History: No Known Living Status: Age at (years of age): 72 Hx Family Stroke: Yes Physical Exam - Physical Exam General Appearance: Alert, Comfortable, No apparent distress, Obese, Well Hydrated Eye Exam: bilateral normal Ears, Nose, Throat: normal pharynx, other - MMM Neck: non-tender, full range of motion, supple Respiratory: chest non-tender, lungs clear, normal breath sounds, no respiratory distress, no accessory muscle use Cardiovascular/Chest: normal peripheral pulses, regular rate, rhythm, no edema, no murmur Gastrointestinal/Abdominal: normal bowel sounds, non tender, soft Back Exam: no CVA tenderness, no vertebral tenderness Extremity: normal range of motion, non-tender, no pedal edema, no calf tenderness, normal capillary refill Neurologic: centrifugal spinner II-XII nml as tested, no motor/sensory deficits, alert, normal mood/affect, oriented x 3, other - 5/5 strength in all extremities. NIHSS is 0 Skin Exam: normal color, warm/dry Progress - Progress Progress: 02/07/19 18:11 Zak Banuelos #[id number] 02/07/19 19:40 Pt presents with 1 day h/o generalized weakness and body aches. Has h/o CRI with last creatinine 1.8 and is 1.9 today. Has mild UTI on UA. VS and other labs reassuring. I have offered obs admit, but patient prefers to go home. her daughter is at bedside and agrees with taking her home. Will treat with IV Rocephin here and start po abx at home. I have asked her to f/u with pcp in 1-2 days for recheck and repeat labs. - Results/Orders Results/Orders: 02/07/19 18:00 EKG .ONCE 02/07/19 18:03 IV:Start .ONCE 02/07/19 19:39 [email or web address] SODIUM [Rocephin] 1 gm Sodium Chl 0.9% 50Ml Min-Bag+ [NS 50ml MINI-BAG+] 50 ml IVPB ONCE Laboratory Results - last 24 hr 02/07/19 02/07/19 02/07/19 18:00 18:00 18:00 WBC 6.0 RBC 3.65 L Hgb 11.9 L Hct 35.6 L MCV 97.5 MCH 32.6 H MCHC 33.4 RDW 13.5 Plt Count 230 MPV 7.9 Absolute Neuts (auto) 3.30 Absolute Lymphs (auto) 1.80 Absolute Monos (auto) 0.70 Absolute Eos (auto) 0.10 Absolute Basos (auto) 0.00 Neutrophils % 55.5 Lymphocytes % 30.0 Monocytes % 12.4 H Eosinophils % 1.4 Basophils % 0.7 Sodium 138 Potassium 4.7 Chloride 102 Carbon Dioxide 24 Anion Gap 16.7 BUN 43 H Creatinine 1.97 H BUN/Creatinine Ratio 21.8 H Random Glucose 97 Serum Osmolality 286.4 Calcium 9.7 Total Bilirubin 0.3 AST 25 ALT 22 Alkaline Phosphatase 97 Troponin I < 0.02 Serum Total Protein 6.4 Albumin 3.7 Globulin 2.7 Albumin/Globulin Ratio 1.4 Urine Color Urine Appearance Urine pH Ur Specific [place] Urine Protein Urine Glucose (UA) Urine Ketones Urine Blood Urine Nitrite Urine Bilirubin Urine Urobilinogen Ur Leukocyte Esterase Urine RBC Urine WBC Ur Epithelial Cells Urine Bacteria 02/07/19 19:20 WBC RBC Hgb Hct MCV MCH MCHC RDW Plt Count MPV Absolute Neuts (auto) Absolute Lymphs (auto) Absolute Monos (auto) Absolute Eos (auto) Absolute Basos (auto) Neutrophils % Lymphocytes % Monocytes % Eosinophils % Basophils % Sodium Potassium Chloride Carbon Dioxide Anion Gap BUN Creatinine BUN/Creatinine Ratio Random Glucose Serum Osmolality Calcium Total Bilirubin AST ALT Alkaline Phosphatase Troponin I Serum Total Protein Albumin Globulin Albumin/Globulin Ratio Urine Color Yellow Urine Appearance Clear Urine pH 5.5 Ur Specific [place] 1.020 Urine Protein Negative Urine Glucose (UA) Negative Urine Ketones Trace Urine Blood Negative Urine Nitrite Negative Urine Bilirubin Negative Urine Urobilinogen 0.2 Ur Leukocyte Esterase Trace H Urine RBC 0 Urine WBC 3-5 H Ur Epithelial Cells 1-3 Urine Bacteria 1+ - EKG/XRAY/CT EKG: Geovanny, Sinus Comments: rate 59, 2nd degree Mobitz 1 AV Block, no ST abnormality Departure - Departure Clinical Impression: Urinary tract infection, Generalized weakness, CRI (chronic renal insufficiency) Time of Disposition: 19:44 Disposition: Discharge to Home or Self Care Condition: Good Departure Forms: ED Discharge - Pt. Copy, Patient Portal Self Enrollment Referrals: Johan David III, MD [Primary Care Provider] - 1-2 Days Prescriptions: Nitrofurantoin Monohydrate Mac [Macrobid] 100 mg PO BID 10 Days #20 capsule Home Medications: Ambulatory Orders RX: Acetaminophen W/ Codeine [Tylenol W/ CODEINE #3] 1 ea PO Q6H PRN 04/09/15 RX: Ascorbic Acid [Vitamin C] 1,000 mg PO DAILY 04/09/15 RX: Calcium 1,200 mg PO ACBK 04/09/15 RX: Levothyroxine Sodium [Synthroid] 88 mcg PO DAILY 04/09/15 RX: Multiple Vitamins W/ Minerals [Vitamin D3 Complete] 1 tab PO DAILY 04/09/15 RX: Oxybutynin Chloride [Ditropan] 5 mg PO BID 04/09/15 RX: Pravastatin Sodium [Pravachol] 40 mg PO BID 04/09/15 RX: Spironolactone & Hydrochloroth [Spironolactone/Hydrochlor 25-25 mg] 2 tab PO DAILY 04/09/15 Potassium Chloride [K-Tab] 10 meq PO DAILY 11/20/17 RX: Docusate Sodium 200 mg PO BEDTIME 11/20/17 Diphenoxylate/Atropine [Lomotil Tab] 1 tab PO BID PRN 2 Days #3 tab 11/22/17 Acetaminophen W/ Codeine [Tylenol W/ CODEINE #3] 1 ea PO BEDTIME 02/07/19 Cholecalciferol [Vitamin D3] 2,000 unit PO DAILY 02/07/19 Glucosamine Sulfate [Glucosamine] 2,000 mg PO BID 02/07/19 Magnesium [Chelated Magnesium] 100 mg PO DAILY 02/07/19 Multiple Vitamins W/ Minerals [Macular Health Formula] 2 cap PO DAILY 02/07/19 Nitrofurantoin Monohydrate Mac [Macrobid] 100 mg PO BID 10 Days #20 capsule 02/07/19 RX: Biotin 1,000 mcg PO DAILY 02/07/19 RX: Furosemide 20 mg PO MOWEFR 02/07/19 RX: Lisinopril 5 mg PO DAILY 02/07/19 RX: Metoprolol Tartrate [Lopressor] 100 mg PO DAILY 02/07/19 RX: Omeprazole 20 mg PO DAILY 02/07/19
[2019-02-07 18:10] VITALS: TEMP 97.9
--- NOTE | 2019-02-07 19:01 | RAD ---
EXAM DESCRIPTION: XR Chest, 1 View CLINICAL HISTORY: 83 years Female Generalized Weakness TECHNIQUE: One view of the chest. COMPARISON: No prior exams provided for comparison. FINDINGS: The lungs are clear without focal consolidation, effusion, or pneumothorax. The cardiomediastinal silhouette and central pulmonary vasculature are normal. No acute osseous abnormalities. Postsurgical changes in the cervical spine. IMPRESSION: No acute cardiopulmonary abnormalities. Electronically signed by: Marla Bean MD 02/07/2019 6:59 PM CDT
[2019-02-07] MEDS ORDERED: cefTRIAXone SODIUM 1 GM VIAL ONE (19:44)
[2019-02-07] MEDS ORDERED: SODIUM CHL 0.9% 50ML MIN-BAG+ 50 ML IVPB ONE (19:45)
[2019-02-07] MEDS: cefTRIAXone SODIUM 1 GM in SODIUM CHL 0.9% 50ML MIN-BAG+ 50 ML IVPB ONE (19:47)
[2019-02-07 20:34] VITALS: O2SAT 99
[2019-02-07 20:47] VITALS: BP 121/72
== END 2019-02-07 20:45 | disposition home or self-care (01) ==
LOC: ER 17:52
DX: N39.0 Urinary tract infection, site not specified (principal); R53.1 Weakness; N18.9 Chronic kidney disease, unspecified; R00.1 Bradycardia, unspecified; I44.1 Atrioventricular block, second degree; E66.9 Obesity, unspecified; E11.22 Type 2 diabetes mellitus with diabetic chronic kidney disease; E07.9 Disorder of thyroid, unspecified; I12.9 Hypertensive chronic kidney disease with stage 1 through stage 4 chronic kidney disease, or unspecified chronic kidney disease; J44.9 Chronic obstructive pulmonary disease, unspecified; Z79.899 Other long term (current) drug therapy; Z99.81 Dependence on supplemental oxygen; Z88.5 Allergy status to narcotic agent; Z68.36 Body mass index [BMI] 36.0-36.9, adult
CPT/HCPCS: 71045; 80053; 81001; 84484; 85025; 87502; 93005; J0696; J7050

== ENCOUNTER → 2019-03-02 | Outpatient (CLI) | payer MEDICARE | LOC: BFHH 11:21 | PROVIDERS: ATTEND General Practice | DX: J44.9 Chronic obstructive pulmonary disease, unspecified (principal); H35.30 Unspecified macular degeneration; R53.83 Other fatigue; E11.9 Type 2 diabetes mellitus without complications; I10 Essential (primary) hypertension ==

== ENCOUNTER 2019-04-04 21:47 | Observation (INO) | payer MEDICARE ==
[2019-04-04] MEDS ORDERED: SODIUM CHLORIDE 0.9% (FLUSH) 10 ML SYG IV PRN (22:08)
[2019-04-04] MEDS ORDERED: SODIUM CHLORIDE 0.9% 1000ML 1,000 ML IVS PRN (22:08)
[2019-04-04] MEDS ORDERED: diazePAM INJ 10 MG/2 ML SYG IM ONE (22:34)
[2019-04-04] MEDS ORDERED: KETOROLAC TROMETHAMINE INJ 30 MG/ML VIAL IM ONE (22:36)
--- NOTE | 2019-04-04 22:50 | ED.PDOC ---
History of Present Illness - General Chief Complaint: Drug or Alcohol Abuse Stated Complaint: took 60 pills by accident Time Seen by Provider: 04/04/19 22:07 - History of Present Illness Initial Comments: Pt accidentally took the whole bottle of Spironolactone and was brought to the ER , no acute complain , totally asymptomatic . Timing/Duration: 1/2 hour Improving Factors: nothing Worsening Factors: nothing Associated Symptoms: denies symptoms Allergies/Adverse Reactions: Allergies Hydrocodone [From Vicodin] Allergy (Severe, Verified 04/04/19 22:30) swelled up everywhere, "couldn't breathe" Home Medications: Ambulatory Orders Acetaminophen W/ Codeine [Tylenol W/ CODEINE #3] 1 ea PO Q6H PRN 04/09/15 Ascorbic Acid [Vitamin C] 1,000 mg PO DAILY 04/09/15 Calcium 1,200 mg PO ACBK 04/09/15 Levothyroxine Sodium [Synthroid] 88 mcg PO DAILY 04/09/15 Multiple Vitamins W/ Minerals [Vitamin D3 Complete] 1 tab PO DAILY 04/09/15 Oxybutynin Chloride [Ditropan] 5 mg PO BID 04/09/15 Pravastatin Sodium [Pravachol] 40 mg PO BID 04/09/15 Spironolactone & Hydrochloroth [Spironolactone/Hydrochlor 25-25 mg] 2 tab PO DAILY 04/09/15 Docusate Sodium 200 mg PO BEDTIME 11/20/17 Potassium Chloride [K-Tab] 10 meq PO DAILY 11/20/17 Diphenoxylate/Atropine [Lomotil Tab] 1 tab PO BID PRN 2 Days #3 tab 11/22/17 Acetaminophen W/ Codeine [Tylenol W/ CODEINE #3] 1 ea PO BEDTIME 02/07/19 Biotin 1,000 mcg PO DAILY 02/07/19 Cholecalciferol [Vitamin D3] 2,000 unit PO DAILY 02/07/19 Furosemide 20 mg PO MOWEFR 02/07/19 Glucosamine Sulfate [Glucosamine] 2,000 mg PO BID 02/07/19 Lisinopril 5 mg PO DAILY 02/07/19 Magnesium [Chelated Magnesium] 100 mg PO DAILY 02/07/19 Metoprolol Tartrate [Lopressor] 100 mg PO DAILY 02/07/19 Multiple Vitamins W/ Minerals [Macular Health Formula] 2 cap PO DAILY 02/07/19 Nitrofurantoin Monohydrate Mac [Macrobid] 100 mg PO BID 10 Days #20 capsule 02/07/19 Omeprazole 20 mg PO DAILY 02/07/19 Review of Systems - Review of Systems Constitutional: States: no symptoms reported EENTM: States: no symptoms reported Respiratory: States: no symptoms reported Cardiology: States: no symptoms reported Gastrointestinal/Abdominal: States: no symptoms reported Genitourinary: States: no symptoms reported Musculoskeletal: States: no symptoms reported Skin: States: no symptoms reported Neurological: States: no symptoms reported Endocrine: States: no symptoms reported Hematologic/Lymphatic: States: no symptoms reported All other Systems: Reviewed and Negative Past Medical History (General) - Patient Medical History Hx Seizures: No Hx Stroke: No Hx Dementia: No Hx Asthma: No Hx of COPD: Yes Hx Cardiac Disorders: No Hx Congestive Heart Failure: No Hx Pacemaker: No Hx Hypertension: Yes Hx Thyroid Disease: Yes Hx Diabetes: Yes Hx Gastroesophageal Reflux: No Hx Renal Disease: No Hx Cancer: No Hx of HIV: No Hx Hepatitis C: No Hx MRSA: No Surgical History: noncontributory - Vaccination History Hx Tetanus, Diphtheria Vaccination: No Hx Influenza Vaccination: Yes Hx Pneumococcal Vaccination: No - Social History Hx Tobacco Use: No Hx Chewing Tobacco Use: No Hx Alcohol Use: No Hx Substance Use: No Hx Substance Use Treatment: No Hx Depression: No Hx Physical Abuse: No Hx Emotional Abuse: No Hx Suspected Abuse: No - Activities of Daily Living Long-Term/Assisted Living (if applicable):: [place] - Female History Patient : No Family Medical History - Family History Mother Family History: No Known Living Status: Age at (years of age): 72 Hx Family Stroke: Yes Father Family History: Unknown Living Status: Age at (years of age): 95 Hx Cardiac Disease: Yes Physical Exam - Physical Exam General Appearance: Alert, Comfortable, No apparent distress Eye Exam: bilateral normal Ears, Nose, Throat: hearing grossly normal, normal ENT inspection, normal pharynx Neck: non-tender, full range of motion, supple, normal inspection Respiratory: chest non-tender, lungs clear, normal breath sounds, no respiratory distress, no accessory muscle use Cardiovascular/Chest: regular rate, rhythm, no edema, no gallop, no JVD, no murmur Gastrointestinal/Abdominal: non tender, soft, no organomegaly, no pulsatile mass Back Exam: normal inspection, no CVA tenderness, no vertebral tenderness Neurologic: no motor/sensory deficits, alert, normal mood/affect, oriented x 3 Skin Exam: normal color Lymphatic: no adenopathy Progress - Progress Progress: 04/04/19 22:53 Called the Poison controlled , following were the recommendations from poison control Overnight monitor the pt Monitor hyperkalemia /renal function and symptoms - Results/Orders Results/Orders: 04/04/19 22:08 IV Care:Saline Lock per Protoc QSHIFT Telemetry Q4H URINE DRUG SCREEN, 7 ASSAY Stat Sodium Chloride 0.9% (Flush) [Saline Flush Syringe] 10 ml IV PRN PRN Sodium Chloride 0.9% 1000ML [Ns 1000 ml] 1,000 ml IVS .QD URINALYSIS Stat 04/04/19 22:15 EKG STAT Laboratory Results WBC 5.8 K/mm3 (4.8-10.8) 04/04/19 21:45 RBC 3.94 M/mm3 (4.20-5.40) L 04/04/19 21:45 Hgb 12.5 gm/dL (12.0-16.0) 04/04/19 21:45 Hct 37.9 % (36.0-47.0) 04/04/19 21:45 MCV 96.2 fl (81.0-99.0) 04/04/19 21:45 MCH 31.6 pg (27.0-31.0) H 04/04/19 21:45 MCHC 32.9 g/dL (33.0-37.0) L 04/04/19 21:45 RDW 13.7 % (11.5-14.5) 04/04/19 21:45 Plt Count 253 K/mm3 (130-400) 04/04/19 21:45 MPV 8.2 fl (7.40-10.4) 04/04/19 21:45 Absolute Neuts (auto) 3.20 K/uL (1.8-6.8) 04/04/19 21:45 Absolute Lymphs (auto) 1.80 K/uL (1.0-3.4) 04/04/19 21:45 Absolute Monos (auto) 0.60 K/uL (0.2-0.8) 04/04/19 21:45 Absolute Eos (auto) 0.10 K/uL (0.0-0.4) 04/04/19 21:45 Absolute Basos (auto) 0.00 K/uL (0.0-0.1) 04/04/19 21:45 Neutrophils % 55.5 % (42.0-78.0) 04/04/19 21:45 Lymphocytes % 31.5 % (20.0-50.0) 04/04/19 21:45 Monocytes % 10.6 % (2.0-9.0) H 04/04/19 21:45 Eosinophils % 1.9 % (1.0-5.0) 04/04/19 21:45 Basophils % 0.5 % (0.0-2.0) 04/04/19 21:45 PT 9.7 SECONDS (9.0-10.9) 04/04/19 21:45 INR 0.97 (0.9-1.15) 04/04/19 21:45 PTT (SP) 24.1 SECONDS (21.8-31.6) 04/04/19 21:45 Sodium 139 mmol/L (135-145) 04/04/19 21:45 Potassium 3.9 mmol/L (3.6-5.0) 04/04/19 21:45 Chloride 105 mmol/L (101-111) 04/04/19 21:45 Carbon Dioxide 23 mmol/L (21-31) 04/04/19 21:45 Anion Gap 14.9 (12-18) 04/04/19 21:45 BUN 27 mg/dL (7-18) H 04/04/19 21:45 Creatinine 1.36 mg/dL (0.6-1.3) H 04/04/19 21:45 BUN/Creatinine Ratio 19.9 (10-20) 04/04/19 21:45 Random Glucose 113 mg/dL (70-105) H 04/04/19 21:45 Serum Osmolality 283.5 mOsm/L (275-295) 04/04/19 21:45 Calcium 9.2 mg/dL (8.4-10.2) 04/04/19 21:45 Total Bilirubin 0.4 mg/dL (0.2-1.0) 04/04/19 21:45 AST 29 IU/L (10-42) 04/04/19 21:45 ALT 23 IU/L (10-60) 04/04/19 21:45 Alkaline Phosphatase 99 IU/L (42-121) 04/04/19 21:45 Creatine Kinase 51 IU/L (26-140) 04/04/19 21:45 CK-MB (CK-2) 1.5 ng/mL (0.0-4.4) 04/04/19 21:45 CK-MB (CK-2) % Not Reportable 04/04/19 21:45 Troponin I < 0.02 ng/mL (0.01-0.05) 04/04/19 21:45 Serum Total Protein 6.7 gm/dL (6.4-8.2) 04/04/19 21:45 Albumin 3.7 g/dl (3.2-5.5) 04/04/19 21:45 Globulin 3.0 gm/dL (2.3-3.5) 04/04/19 21:45 Albumin/Globulin Ratio 1.2 (1.1-1.9) 04/04/19 21:45 Serum HCG, Qual Negative (NEGATIVE) 04/04/19 21:45 Salicylates < 4.0 mg/dL (0-29.9) 04/04/19 21:45 Acetaminophen < 10.0 ug/mL (10.0-30.0) L 04/04/19 21:45 Ethyl Alcohol 0.90 mg/dL (0-79) 04/04/19 21:45 - EKG/XRAY/CT EKG: Sinus Departure - Departure Clinical Impression: Accidental drug overdose Disposition: Admit Patient Condition: Good Departure Forms: ED Discharge - Pt. Copy, Patient Portal Self Enrollment Referrals: Johan David III, MD [Primary Care Provider] - 1-2 Weeks Home Medications: Ambulatory Orders Acetaminophen W/ Codeine [Tylenol W/ CODEINE #3] 1 ea PO Q6H PRN 04/09/15 Ascorbic Acid [Vitamin C] 1,000 mg PO DAILY 04/09/15 Calcium 1,200 mg PO ACBK 04/09/15 Levothyroxine Sodium [Synthroid] 88 mcg PO DAILY 04/09/15 Multiple Vitamins W/ Minerals [Vitamin D3 Complete] 1 tab PO DAILY 04/09/15 Oxybutynin Chloride [Ditropan] 5 mg PO BID 04/09/15 Pravastatin Sodium [Pravachol] 40 mg PO BID 04/09/15 Spironolactone & Hydrochloroth [Spironolactone/Hydrochlor 25-25 mg] 2 tab PO DAILY 04/09/15 Docusate Sodium 200 mg PO BEDTIME 11/20/17 Potassium Chloride [K-Tab] 10 meq PO DAILY 11/20/17 Diphenoxylate/Atropine [Lomotil Tab] 1 tab PO BID PRN 2 Days #3 tab 11/22/17 Acetaminophen W/ Codeine [Tylenol W/ CODEINE #3] 1 ea PO BEDTIME 02/07/19 Biotin 1,000 mcg PO DAILY 02/07/19 Cholecalciferol [Vitamin D3] 2,000 unit PO DAILY 02/07/19 Furosemide 20 mg PO MOWEFR 02/07/19 Glucosamine Sulfate [Glucosamine] 2,000 mg PO BID 02/07/19 Lisinopril 5 mg PO DAILY 02/07/19 Magnesium [Chelated Magnesium] 100 mg PO DAILY 02/07/19 Metoprolol Tartrate [Lopressor] 100 mg PO DAILY 02/07/19 Multiple Vitamins W/ Minerals [Macular Health Formula] 2 cap PO DAILY 02/07/19 Nitrofurantoin Monohydrate Mac [Macrobid] 100 mg PO BID 10 Days #20 capsule 02/07/19 Omeprazole 20 mg PO DAILY 02/07/19 Comments: Pt d/w hospitalist and agreed to admit for observation
[2019-04-05] MEDS ORDERED: ONDANSETRON INJ 4 MG/2 ML VIAL IV PRN (00:22)
[2019-04-05] MEDS ORDERED: SODIUM CHLORIDE 0.9% (FLUSH) 10 ML SYG IV PRN (00:22)
[2019-04-05] MEDS ORDERED: IV SET AND CAP CHANGE INJ INJ SCH (00:30)
[2019-04-05] MEDS ORDERED: PANTOPRAZOLE SODIUM IV 40 MG VIAL IV SCH (06:30)
[2019-04-05] MEDS ORDERED: SODIUM CHLORIDE 0.9% (FLUSH) 10 ML SYG IV SCH (09:00)
[2019-04-05] MEDS ORDERED: MAGNESIUM SULFATE PREMIX 2GM 2 GM in PREMIX BAG 1 BAG IVPB ONE (09:09)
[2019-04-05] MEDS ORDERED: MAGNESIUM SULFATE PREMIX 2GM 50 ML IVPB ONE (09:14)
[2019-04-05 11:56] VITALS: BP 149/87; TEMP 97.4
[2019-04-05 12:35] VITALS: O2SAT 97
--- NOTE | 2019-04-05 13:10 | SSS ---
SUPERVISING PHYSICIAN: Timbo Adams MD ADMISSION DIAGNOSIS: 1. Unintentional overdose of spironolactone. 2. Hypertension. 3. Chronic obstructive pulmonary disease. 4. Diabetes mellitus, type 2. 5. Fibromyalgia. 6. Osteoarthritis. DISCHARGE DIAGNOSIS: 1. Unintentional overdose of spironolactone. 2. Hypertension. 3. Chronic obstructive pulmonary disease. 4. Diabetes mellitus, type 2. 5. Fibromyalgia. 6. Osteoarthritis. HOSPITAL COURSE: This is an 83-year-old female who came to the Emergency Room due to unintentional ingestion of approximately 60 pills. She states she takes her medicines straight out of the bottle and she thought it was another bottle and took that one and more pills came out than she intended when she started to take them. Therefore, she took the unintentional amount. She states she got 90 pills and had only taken them for 30 days, so there was probably approximately 60. She was seen in the Emergency Room and her workup was unremarkable. Poison Control was contacted and suggested overnight monitoring along with electrolyte and renal function studies. Therefore, a repeat was done this morning and there are really no abnormalities. She did have a little bit of low magnesium and therefore, she was given some today. I repeated a third chemistry, which was also unremarkable, around noon. She remains asymptomatic. Therefore, she is discharged today in stable condition. PAST MEDICAL HISTORY: 1. Hypertension. 2. Hyperlipidemia. 3. Chronic obstructive pulmonary disease. 4. Gastroesophageal reflux disease. 5. Osteoarthritis. 6. Osteoporosis. 7. Diabetes mellitus, type 2. 8. Cerebrovascular accident. 9. Obstructive sleep apnea. 10. Fibromyalgia. 11. Polymyalgia rheumatica. PAST SURGICAL HISTORY: 1. Appendectomy. 2. Left knee arthroscopy. 3. Bilateral cataract removal. 4. Bilateral knee replacement. 5. Lumbar laminectomy. 6. Cervical surgery. 8. Bilateral rotator cuff repair. MEDICATIONS: Please see medication reconciliation record on the computer. ALLERGIES: VICODIN, ELAVIL. FAMILY HISTORY: Stroke, myocardial infarction. SOCIAL HISTORY: She is retired, . She smoked in the distant past. No alcohol, no illicit drugs. REVIEW OF SYSTEMS: Reviewed with the patient and she denies any complaints. PHYSICAL EXAMINATION: VITAL SIGNS: Blood pressure 149/87. Heart rate 79. Respiratory rate 18. Temperature 97.4. Oxygen saturation 96%. GENERAL: Ms. Mcdaniels is an 83-year-old female in no active distress currently. NEUROLOGIC: The patient is alert and oriented. LUNGS: Clear to auscultation bilaterally. CARDIOVASCULAR: Regular rate and rhythm. Normal S1, S2. ABDOMEN: Soft. Positive bowel sounds. EXTREMITIES: Lower extremities with no edema. #[id number] [facility]
== END 2019-04-05 13:10 ==
LOC: ER 21:47 → MS 23:19
PROVIDERS: ADMIT Nurse Practitioner Acute Care; ATTEND Nurse Practitioner
DX: T50.0X1A Poisoning by mineralocorticoids and their antagonists, accidental (unintentional), initial encounter (principal); E83.42 Hypomagnesemia; E87.5 Hyperkalemia; I10 Essential (primary) hypertension; J44.9 Chronic obstructive pulmonary disease, unspecified; E11.9 Type 2 diabetes mellitus without complications; M79.7 Fibromyalgia; M19.90 Unspecified osteoarthritis, unspecified site; K21.9 Gastro-esophageal reflux disease without esophagitis; M81.0 Age-related osteoporosis without current pathological fracture; G47.33 Obstructive sleep apnea (adult) (pediatric); M35.3 Polymyalgia rheumatica; E07.9 Disorder of thyroid, unspecified; Z79.890 Hormone replacement therapy; Z79.899 Other long term (current) drug therapy; Z88.5 Allergy status to narcotic agent; Z88.8 Allergy status to other drugs, medicaments and biological substances; Z86.73 Personal history of transient ischemic attack (TIA), and cerebral infarction without residual deficits; Z96.653 Presence of artificial knee joint, bilateral; Z87.891 Personal history of nicotine dependence; Z90.49 Acquired absence of other specified parts of digestive tract; Z82.3 Family history of stroke; Z82.49 Family history of ischemic heart disease and other diseases of the circulatory system
CPT/HCPCS: 96365; 96375; J7030; J3475; 80048; 82553; 80329 ×2; 80053 ×2; 80307; 36415 ×2; 81001; 85025 ×2; 82550; 80320; 84703; 83735; 85730; 85610; 84484; 94760 ×3; 99285; 93005; G0378

== ENCOUNTER → 2020-06-30 | Outpatient (CLI) | payer MEDICARE | LOC: BFHH 11:30 | PROVIDERS: ATTEND General Practice | DX: E11.9 Type 2 diabetes mellitus without complications (principal); I50.9 Heart failure, unspecified; I10 Essential (primary) hypertension; E03.9 Hypothyroidism, unspecified ==

== ENCOUNTER → 2020-07-07 | Outpatient (CLI) | payer MEDICARE ==
--- NOTE | 2020-07-07 14:39 | RAD ---
EXAM DESCRIPTION: Chest,2 Views CLINICAL HISTORY: Cough COMPARISON: Chest radiograph dated February 07, 2019 TECHNIQUE: Two-view radiograph of the chest FINDINGS: Lower cervical ACDF construct is present. Lung volumes are shallow with associated bronchovascular crowding. Scattered calcific atherosclerosis of the thoracic aorta. Cardiac silhouette shows normal heart size. Pulmonary vascularity is within normal limits. Subtle linear opacities in the bilateral lower lung zones most compatible with atelectasis. Otherwise, lungs show no confluent infiltrates. Costophrenic angles are sharp. No pneumothorax. Degenerative changes of the thoracic spine and shoulders. IMPRESSION: 1. Shallow lung volumes with associated bronchovascular crowding. 2. Minimal bibasilar atelectasis. Otherwise, lungs show no confluent infiltrates. 3. Chronic findings as above. Electronically signed by: Johan Renteria MD 07/07/2020 2:38 PM [facility]
== END ==
LOC: RAD 14:12
PROVIDERS: ATTEND Nurse Practitioner Family
DX: R05 Cough (principal); J98.11 Atelectasis; M47.894 Other spondylosis, thoracic region; I70.0 Atherosclerosis of aorta; Z98.1 Arthrodesis status; M19.011 Primary osteoarthritis, right shoulder; M19.012 Primary osteoarthritis, left shoulder